=== PATIENT | female | born 1965 | race Caucasian/White ===

== ENCOUNTER 2017-12-26 09:38 | Outpatient (CLI) | payer BC ==
--- NOTE | 2017-12-26 12:03 | ULT ---
ULTRASOUND ABDOMEN COMPLETE HISTORY: Abdominal pain and cramping. Gas. Bloating. COMPARISON: Reference is made to a 07/21/2009 exam. TECHNIQUE: Michele-scale ultrasound evaluation of the liver, gallbladder, spleen, pancreas, common bile duct, kidne ys, abdominal aorta, and inferior vena cava (IVC). FINDINGS: There is no focal hepatic lesion. No acute abnormality of the spleen. There is a focus of decreased echogenicity at the left renal hilar region, which may relate to the extrarenal pelvis versus the pe ripelvic cyst, measuring slightly greater than 2 cm. Otherwise, no overt hydronephrosis via the kidn ey. The pancreas is not reliably assessed as it is obscured by bowel content. No abnormal dilatatio n of the imaged common duct. Flores sign is reported as negative. There is no acute gallbladder pat hology evident. No significant ascites is seen. The abdominal aorta is obscured from view. The bow el content is not well seen distally, thus limiting assessment. IMPRESSION: No acute intraabdominal abnormality. Additional details as described above. POS: SHAYNE
== END 2017-12-26 09:39 | disposition home or self-care (01) ==
LOC: SCSULT 09:38
PROVIDERS: ATTEND Internal Medicine Gastroenterology
DX: R10.9 Unspecified abdominal pain (principal); R14.0 Abdominal distension (gaseous); Z12.11 Encounter for screening for malignant neoplasm of colon; Z83.71 Family history of colonic polyps
CPT/HCPCS: 76700

== ENCOUNTER 2019-08-19 07:49 | Day surgery (SDC) | payer BC ==
[2019-08-16 13:56] VITALS: BMI 21.6
[2019-08-19] MEDS ORDERED: Iopamidol-M 300 61% 15 ML VIAL ONE (11:39)
--- NOTE | 2019-08-19 11:51 | CT ---
POST MYELOGRAM CT OF THORACIC SPINE PERFORMED WITH CONTRAST: Date: 08/19/19 HISTORY: Back pain. FINDINGS: There is some parenchymal scarring within the right lung apex and anterior aspect of the right upper lobe. The patient has had bilateral mastectomy by history. No pulmonary nodules are identified or ple ural effusions. A single right-sided Jones wing is present. The proximal end of this wing is at the T10 level. I d o not appreciate any areas of canal or foraminal stenosis in the thoracic spine. Contrast opacificati on is somewhat limited in the upper thoracic spine region, but no abnormalities are seen. IMPRESSION: Unremarkable post myelogram CT of thoracic spine. No evidence of any significant canal stenosis. Ther e are postop changes with right-sided Jones wing and fusion changes beginning at T10 and extendin g inferiorly without any significant canal or foraminal stenosis. POS: SHAYNE
--- NOTE | 2019-08-19 12:10 | CT ---
POST MYELOGRAM CT OF LUMBAR SPINE PERFORMED WITH CONTRAST: Date: 08/19/19 HISTORY: Back pain. Patient also describes some leg weakness. FINDINGS: Bilateral pedicle screws have been placed at L4, L5, and S1, with extensive bony fusion changes also present along the course of the spine. A right-sided Jones wing is noted. The distal end of the H debora wing is at the L4 level. T12-L1: No signs of any canal or foraminal stenosis at this level. Posterior fusion changes are seen . L1-2: Once again, posterior fusion changes without canal or foraminal stenosis. L2-3: No significant canal or foraminal narrowing at this level. L3-4: Minimal disc bulge is seen. Once again, posterior fusion changes are noted. No canal or forami nal stenosis. L4-5: This is a narrowed disc level. There are degenerative facet changes also present, and a mild t o moderate degree of canal narrowing related to these changes. There is also vacuum disc phenomenon a nd there is some vacuum disc material in the region of the left L4 foramen. There is suggestion of sm all disc protrusion. There are posterior osteophytic changes also seen. L5-S1: Posterior fusion changes are seen at this level without significant canal or foraminal stenos is. IMPRESSION: 1. Postoperative changes of the spine as described above. 2. There is a moderate degree of canal stenosis at L4-5 related to a disc bulge, posterior osteophyt ic change, facet and ligamentous hypertrophic change. In addition, there is vacuum disc material seen in the left foramen consistent with a left lateral disc protrusion or possibly small disc extrusion. There is a moderate left-sided foraminal narrowing also present. POS: SHAYNE
--- NOTE | 2019-08-19 12:18 | RAD ---
LUMBAR AND THORACIC MYELOGRAM: Date: 08/19/19 HISTORY: Patient with history of previous surgeries, including remote placement of a Jones wing and more r ecent bilateral pedicle screw placement in the lumbar spine region. TECHNIQUE/FINDINGS: Preliminary injection molding machine tender films show a right-sided Jones wing which extends from T10 to the L4 level. Slade ateral pedicle screws are seen at L4, L5, and S1. Extensive bony fusion changes are noted along the p osterior and more along the right side of the lumbar spine region. After informed consent was obtained, the patient was prepped and draped in the normal sterile fashion . Local anesthesia was obtained with 1% Xylocaine. A L2-3 puncture was performed using a 22 gauge spi nal needle. A few drops of clear CSF fluid were obtained and subsequently approximately 12 mL of Isov ue-M 300 contrast injected intrathecally with good opacification of the thecal sac. Patient tolerated the procedure well. There were no immediate complications of the procedure. There is mild thecal sac narrowing at the L4-5 level. Please refer to the MRI report concerning the m ore detailed findings. IMPRESSION: Please see CT report concerning detailed findings of this examination. No immediate complications of the myelographic procedure. POS: SHAYNE
[2019-08-19 16:25] VITALS: BP 123/82; TEMP 97.7
== END 2019-08-19 10:31 | disposition home or self-care (01) ==
LOC: RAD 07:49
PROVIDERS: ATTEND Nurse Practitioner Family
PROC: B01B1ZZ Fluoroscopy of Spinal Cord using Low Osmolar Contrast (ICD-10-PCS; principal; 2019-08-19)
DX: M50.122 Cervical disc disorder at C5-C6 level with radiculopathy (principal); M51.16 Intervertebral disc disorders with radiculopathy, lumbar region; M51.17 Intervertebral disc disorders with radiculopathy, lumbosacral region; M96.1 Postlaminectomy syndrome, not elsewhere classified; M48.061 Spinal stenosis, lumbar region without neurogenic claudication; M25.78 Osteophyte, vertebrae; E03.9 Hypothyroidism, unspecified; F41.9 Anxiety disorder, unspecified; I10 Essential (primary) hypertension; G43.909 Migraine, unspecified, not intractable, without status migrainosus; Z79.899 Other long term (current) drug therapy; Z88.8 Allergy status to other drugs, medicaments and biological substances; Z98.1 Arthrodesis status
CPT/HCPCS: 62305; 72129; 72132; Q9967

== ENCOUNTER 2022-08-09 13:46 | Outpatient (CLI) | payer BC | END 2022-08-09 13:47 | disposition home or self-care (01) | LOC: SCSMRI 13:46 | PROVIDERS: ATTEND Specialist | DX: M50.122 Cervical disc disorder at C5-C6 level with radiculopathy (principal); M47.22 Other spondylosis with radiculopathy, cervical region | CPT/HCPCS: 72141 ==

== ENCOUNTER 2023-05-10 12:32 | Outpatient (CLI) | payer BC | END 2023-05-10 12:33 | disposition home or self-care (01) | LOC: RAD 12:32 | PROVIDERS: ATTEND Nurse Practitioner Family | DX: M79.642 Pain in left hand (principal) ==